=== PATIENT | female | born 1950 | race African-American/Black ===

== ENCOUNTER 2017-11-05 13:55 | Inpatient (IN) | payer MEDICARE, BC ==
[2017-11-05 20:10] LABS: ADD MAN DIFF? NO
[2017-11-05 20:11] LABS: BASOPHILS % 0.3 % (0.0-2.0); EOSINOPHILS # 0.3 10^3/ul (0.0-0.5); EOSINOPHILS % 4.3 % (0.0-7.0); HEMATOCRIT 21.1 % (37.0-47.0); HEMOGLOBIN 7.1 g/dl (12.0-16.0); LYMPHOCYTES # 1.4 10^3/ul (0.8-2.9); LYMPHOCYTES % 23.4 % (15.0-51.0); MEAN CORPUSCULAR HEMOGLOBIN 29.2 pg (29.0-33.0); MEAN CORPUSCULAR HGB CONC 33.6 g/dl (32.0-37.0); MEAN CORPUSCULAR VOLUME 86.8 fl (82.0-101.0); MEAN PLATELET VOLUME 12.4 fl (7.4-10.4); MONOCYTE # 0.3 10^3/ul (0.3-0.9); MONOCYTES % 5.5 % (0.0-11.0); NEUTROPHIL # 3.8 10^3/ul (1.6-7.5); PLATELET COUNT 143 10^3/UL (140-415); RED BLOOD COUNT 2.43 10^6/ul (4.20-5.40); RED CELL DISTRIBUTION WIDTH 11.9 % (11.5-14.5)
[2017-11-05 20:11] LABS: WHITE BLOOD COUNT 5.8 10^3/ul (4.8-10.8)
[2017-11-05 20:36] LABS: ANION GAP 27 (8-16); BLOOD UREA NITROGEN 90 mg/dl (7-20); CARBON DIOXIDE 19 mmol/L (21-31); CHLORIDE 102 mmol/L (97-110); GLUCOSE 93 mg/dl (70-220); PARTIAL THROMBOPLASTIN TIME 32.9 Sec (25.0-35.0); PROTIME 13.3 Sec (11.9-14.9); SODIUM 142 mmol/L (135-144)
[2017-11-05 20:38] LABS: POTASSIUM 5.5 mmol/L (3.5-5.1)
[2017-11-05 20:42] LABS: CREATININE 18.01 mg/dl (0.44-1.00)
[2017-11-05 20:48] LABS: TROPONIN-I 0.016 ng/ml (0.00-0.12)
[2017-11-05] MEDS: SOD CHLORIDE 0.9% 250 ML IV (21:09)
[2017-11-05] MEDS: NA POLYST SULFON 15 GM/60 ML BTL PO ×2 (21:10→21:50)
[2017-11-05 21:13] LABS: FREE T4 (FREE THYROXINE) 1.07 ng/dl (0.78-2.44)
[2017-11-05 21:27] LABS: THYROID STIMULATING HORMONE 0.266 MIU/L (0.465-4.680)
[2017-11-05] MEDS: NA BICARBONATE 8.4% 50 ML SYG IV (21:50)
[2017-11-05] MEDS ORDERED: ACETAMINOPHEN 325 MG TAB PO (22:00)
[2017-11-05] MEDS ORDERED: ONDANSETRON 4 MG INJ IV (22:00)
[2017-11-06] MEDS ORDERED: ONDANSETRON 4 MG INJ IV (02:30)
[2017-11-06 08:37] LABS: WHITE BLOOD COUNT 5.9 10^3/ul (4.8-10.8)
[2017-11-06 08:37] LABS: ABNORMAL IP MESSAGE 1; HEMATOCRIT 18.6 % (37.0-47.0); MEAN CORPUSCULAR HEMOGLOBIN 28.8 pg (29.0-33.0); MEAN CORPUSCULAR HGB CONC 33.3 g/dl (32.0-37.0); MEAN CORPUSCULAR VOLUME 86.5 fl (82.0-101.0); PLATELET COUNT 126 10^3/UL (140-415); RED BLOOD COUNT 2.15 10^6/ul (4.20-5.40); RED CELL DISTRIBUTION WIDTH 11.8 % (11.5-14.5)
[2017-11-06 08:50] LABS: POSITIVE DIFF @See below
[2017-11-06 08:51] LABS: ADD MAN DIFF? YES; ALANINE AMINOTRANSFERASE 20 IU/L (13-69); ALBUMIN 3.9 g/dl (3.3-4.9); ALBUMIN/GLOBULIN RATIO 1.18; ALKALINE PHOSPHATASE 123 IU/L (42-121); ANION GAP 24 (8-16); ASPARTATE AMINO TRANSFERASE 18 IU/L (15-46); BLOOD UREA NITROGEN 100 mg/dl (7-20); CALCIUM 8.3 mg/dl (8.4-10.2); CARBON DIOXIDE 22 mmol/L (21-31); CHLORIDE 102 mmol/L (97-110); GLUCOSE 101 mg/dl (70-220); HEMOGLOBIN 6.2 g/dl (12.0-16.0); MAGNESIUM 2.6 mg/dl (1.7-2.5); POTASSIUM 5.9 mmol/L (3.5-5.1); SODIUM 142 mmol/L (135-144); TOTAL PROTEIN 7.2 g/dl (6.1-8.1)
[2017-11-06 08:58] LABS: CREATININE 18.21 mg/dl (0.44-1.00)
[2017-11-06] MEDS: BENAZEPRIL 20 MG TAB PO (09:00)
[2017-11-06 10:01] LABS: ANISOCYTOSIS 1+ (0-0); BAND NEUTROPHILS % (M) 1 % (0-4); EOSINOPHILS % (M) 6 % (0-7); LYMPHOCYTES #M 0.5 10^3/ul (0.8-2.9); LYMPHOCYTES % (M) 10 % (15-51); MICROCYTOSIS 1+ (0-0); MONOCYTE #M 0.3 10^3/ul (0.3-0.9); MONOCYTES % (M) 6 % (0-11); PLATELET ESTIMATE NORMAL; POLYCHROMASIA 3+ (0-0); SEG NEUT #M 4.5 10^3/ul (1.6-7.5); SEGMENTED NEUTROPHILS (M) % 77 % (39-77); SMUDGE%M 5 % (0-0)
[2017-11-06] MEDS: NA POLYST SULFON 15 GM/60 ML BTL PR (17:25)
[2017-11-06 18:23] LABS: IRON 86 ug/dl (35-150)
[2017-11-06] MEDS: SEVELAMER 800 MG TAB PO (18:30)
[2017-11-06 18:33] LABS: % IRON SATURATION 43 % SAT (22-52); TOTAL IRON BINDING CAPACITY 202 ug/dl (241-421)
[2017-11-06] MEDS: EPOETIN 10000 UNITS/1 ML INJ (ESRD) SC (21:36)
[2017-11-07] MEDS: FUROSEMIDE 40 MG TAB PO (05:43)
[2017-11-07] MEDS: PANTOPRAZOLE (EC) 40 MG TAB PO (05:43)
[2017-11-07] MEDS: SEVELAMER 800 MG TAB PO ×3 (08:00→18:18)
[2017-11-07 08:39] LABS: ADD MAN DIFF? NO
[2017-11-07 08:42] LABS: ABNORMAL IP MESSAGE 1; BASOPHILS % 0.2 % (0.0-2.0); EOSINOPHILS # 0.2 10^3/ul (0.0-0.5); EOSINOPHILS % 3.6 % (0.0-7.0); HEMATOCRIT 16.7 % (37.0-47.0); LYMPHOCYTES # 0.4 10^3/ul (0.8-2.9); LYMPHOCYTES % 9.3 % (15.0-51.0); MEAN CORPUSCULAR HEMOGLOBIN 28.9 pg (29.0-33.0); MEAN CORPUSCULAR HGB CONC 33.5 g/dl (32.0-37.0); MEAN CORPUSCULAR VOLUME 86.1 fl (82.0-101.0); MEAN PLATELET VOLUME 12.7 fl (7.4-10.4); MONOCYTE # 0.2 10^3/ul (0.3-0.9); MONOCYTES % 5.3 % (0.0-11.0); NEUTROPHIL # 3.6 10^3/ul (1.6-7.5); NEUTROPHILS % 80.9 % (39.0-77.0); PLATELET COUNT 99 10^3/UL (140-415); RED BLOOD COUNT 1.94 10^6/ul (4.20-5.40); RED CELL DISTRIBUTION WIDTH 11.9 % (11.5-14.5)
[2017-11-07 08:42] LABS: WHITE BLOOD COUNT 4.5 10^3/ul (4.8-10.8)
[2017-11-07 08:53] LABS: HEMOGLOBIN 5.6 g/dl (12.0-16.0); POSITIVE DIFF @See below
[2017-11-07] MEDS: BENAZEPRIL 20 MG TAB PO (09:00)
[2017-11-07 09:14] LABS: BLOOD UREA NITROGEN 83 mg/dl (7-20); CALCIUM 8.2 mg/dl (8.4-10.2); CARBON DIOXIDE 21 mmol/L (21-31); CHLORIDE 102 mmol/L (97-110); GLUCOSE 92 mg/dl (70-220); MAGNESIUM 2.3 mg/dl (1.7-2.5); PHOSPHORUS 7.4 mg/dl (2.5-4.9); SODIUM 141 mmol/L (135-144)
[2017-11-07 09:21] LABS: ANION GAP 23 (8-16)
[2017-11-07 09:23] LABS: POTASSIUM 5.1 mmol/L (3.5-5.1)
[2017-11-07 09:37] LABS: CREATININE 16.56 mg/dl (0.44-1.00)
[2017-11-07] MEDS: EPOETIN 10000 UNITS/1 ML INJ (ESRD) SC (11:41)
[2017-11-07 14:41] LABS: HEMOGLOBIN 6.2 g/dl (12.0-16.0)
[2017-11-08] MEDS: PANTOPRAZOLE (EC) 40 MG TAB PO (06:03)
[2017-11-08] MEDS: SEVELAMER 800 MG TAB PO (08:00)
[2017-11-08 09:06] LABS: IMMEDIATE SPIN CROSSMATCH 1 4
[2017-11-08 09:20] LABS: ADD MAN DIFF? NO
[2017-11-08 09:23] LABS: ABNORMAL IP MESSAGE 1; BASOPHILS % 0.4 % (0.0-2.0); EOSINOPHILS # 0.3 10^3/ul (0.0-0.5); HEMATOCRIT 17.8 % (37.0-47.0); LYMPHOCYTES # 0.9 10^3/ul (0.8-2.9); MEAN CORPUSCULAR HEMOGLOBIN 28.7 pg (29.0-33.0); MEAN CORPUSCULAR HGB CONC 33.7 g/dl (32.0-37.0); MEAN CORPUSCULAR VOLUME 85.2 fl (82.0-101.0); MEAN PLATELET VOLUME 12.1 fl (7.4-10.4); MONOCYTE # 0.4 10^3/ul (0.3-0.9); MONOCYTES % 7.4 % (0.0-11.0); NEUTROPHIL # 3.5 10^3/ul (1.6-7.5); NEUTROPHILS % 69.6 % (39.0-77.0); PLATELET COUNT 102 10^3/UL (140-415); RED BLOOD COUNT 2.09 10^6/ul (4.20-5.40); RED CELL DISTRIBUTION WIDTH 11.9 % (11.5-14.5)
[2017-11-08 09:31] LABS: POSITIVE DIFF @See below
[2017-11-08] MEDS: BENAZEPRIL 20 MG TAB PO (09:44)
[2017-11-08 09:49] LABS: ANION GAP 26 (8-16); BLOOD UREA NITROGEN 82 mg/dl (7-20); CALCIUM 8.3 mg/dl (8.4-10.2); CARBON DIOXIDE 21 mmol/L (21-31); CHLORIDE 97 mmol/L (97-110); GLUCOSE 101 mg/dl (70-220); MAGNESIUM 2.2 mg/dl (1.7-2.5); PHOSPHORUS 7.7 mg/dl (2.5-4.9); POTASSIUM 4.7 mmol/L (3.5-5.1); SODIUM 139 mmol/L (135-144)
[2017-11-08 09:57] LABS: CREATININE 17.58 mg/dl (0.44-1.00)
[2017-11-08 11:45] LABS: THYROID STIMULATING HORMONE 0.555 MIU/L (0.465-4.680)
[2017-11-08] MEDS: SEVELAMER CARBONATE 0.8 GM PKT PO ×2 (13:48→19:38)
[2017-11-08 16:49] LABS: HEMATOCRIT 23.4 % (37.0-47.0); HEMOGLOBIN 8.1 g/dl (12.0-16.0)
[2017-11-08 16:59] LABS: PATH REVIEW CH
[2017-11-08] MEDS: EPOETIN 10000 UNITS/1 ML INJ (ESRD) SC (19:39)
[2017-11-09] MEDS: PANTOPRAZOLE (EC) 40 MG TAB PO (06:00)
[2017-11-09] MEDS: SEVELAMER CARBONATE 0.8 GM PKT PO ×3 (08:00→17:47)
[2017-11-09 08:07] LABS: ADD MAN DIFF? NO
[2017-11-09 08:11] LABS: ABNORMAL IP MESSAGE 1; BASOPHILS % 0.4 % (0.0-2.0); EOSINOPHILS # 0.2 10^3/ul (0.0-0.5); EOSINOPHILS % 3.5 % (0.0-7.0); HEMATOCRIT 23.4 % (37.0-47.0); HEMOGLOBIN 8.2 g/dl (12.0-16.0); LYMPHOCYTES # 0.8 10^3/ul (0.8-2.9); LYMPHOCYTES % 11.2 % (15.0-51.0); MEAN CORPUSCULAR HEMOGLOBIN 29.1 pg (29.0-33.0); MEAN PLATELET VOLUME 12.2 fl (7.4-10.4); MONOCYTE # 0.5 10^3/ul (0.3-0.9); MONOCYTES % 6.8 % (0.0-11.0); NEUTROPHIL # 5.4 10^3/ul (1.6-7.5); NEUTROPHILS % 77.7 % (39.0-77.0); PLATELET COUNT 89 10^3/UL (140-415); RED BLOOD COUNT 2.82 10^6/ul (4.20-5.40)
[2017-11-09 08:11] LABS: WHITE BLOOD COUNT 6.9 10^3/ul (4.8-10.8)
[2017-11-09 08:12] LABS: POSITIVE DIFF @See below
[2017-11-09 08:40] LABS: ANION GAP 24 (8-16); BLOOD UREA NITROGEN 86 mg/dl (7-20); CALCIUM 8.2 mg/dl (8.4-10.2); CARBON DIOXIDE 21 mmol/L (21-31); CHLORIDE 99 mmol/L (97-110); GLUCOSE 101 mg/dl (70-220); MAGNESIUM 2.3 mg/dl (1.7-2.5); PHOSPHORUS 7.8 mg/dl (2.5-4.9); POTASSIUM 4.5 mmol/L (3.5-5.1); SODIUM 139 mmol/L (135-144)
[2017-11-09 08:46] LABS: CREATININE 18.03 mg/dl (0.44-1.00)
[2017-11-09] MEDS: BENAZEPRIL 20 MG TAB PO (09:00)
[2017-11-09] MEDS: LIDOCAINE 1% (MDV) 20 ML INJ ×2 (12:05→12:36)
[2017-11-09] MEDS: PROPOFOL 20 ML ×2 (12:22→14:43)
[2017-11-09] MEDS: MIDAZOLAM 1 MG/ML 2 ML INJ (12:22)
[2017-11-09] MEDS: HEPARIN 1000 UNITS/ML 10 ML INJ (12:36)
[2017-11-09] MEDS: CEFAZOLIN 1 GM/50 ML (PMX) 50 ML IVPB (12:47)
[2017-11-09] MEDS: IOHEXOL 300MG/ML 30 ML BTL (14:21)
[2017-11-09] MEDS: ACETAMINOPHEN 325 MG TAB PO (20:12)
[2017-11-09 21:08] LABS: HEPATITIS B SURFACE ANTIBODY POSITIVE (NEGATIVE)
[2017-11-09 21:51] LABS: HEPATITIS B SURFACE ANTIGEN NEGATIVE (NEGATIVE)
[2017-11-09 22:08] LABS: HEPATITIS C VIRAL ANTIBODY NEGATIVE (NEGATIVE)
[2017-11-10] MEDS: PANTOPRAZOLE (EC) 40 MG TAB PO ×2 (06:00→06:03)
[2017-11-10 07:20] LABS: ADD MAN DIFF? NO
[2017-11-10 07:27] LABS: ABNORMAL IP MESSAGE 1; BASOPHILS % 0.5 % (0.0-2.0); EOSINOPHILS # 0.1 10^3/ul (0.0-0.5); HEMATOCRIT 23.5 % (37.0-47.0); HEMOGLOBIN 8.1 g/dl (12.0-16.0); LYMPHOCYTES # 0.5 10^3/ul (0.8-2.9); LYMPHOCYTES % 11.6 % (15.0-51.0); MEAN CORPUSCULAR HGB CONC 34.5 g/dl (32.0-37.0); MEAN CORPUSCULAR VOLUME 84.2 fl (82.0-101.0); MEAN PLATELET VOLUME 13.1 fl (7.4-10.4); MONOCYTE # 0.3 10^3/ul (0.3-0.9); MONOCYTES % 7.2 % (0.0-11.0); NEUTROPHIL # 3.3 10^3/ul (1.6-7.5); NEUTROPHILS % 77.5 % (39.0-77.0); PLATELET COUNT 103 10^3/UL (140-415); RED BLOOD COUNT 2.79 10^6/ul (4.20-5.40); RED CELL DISTRIBUTION WIDTH 12.8 % (11.5-14.5)
[2017-11-10 07:27] LABS: WHITE BLOOD COUNT 4.3 10^3/ul (4.8-10.8)
[2017-11-10 07:33] LABS: POSITIVE DIFF @See below
[2017-11-10 08:02] LABS: ANION GAP 17 (8-16); CALCIUM 8.3 mg/dl (8.4-10.2); CARBON DIOXIDE 25 mmol/L (21-31); CHLORIDE 100 mmol/L (97-110); CREATININE 12.44 mg/dl (0.44-1.00); GLUCOSE 127 mg/dl (70-220); MAGNESIUM 2.2 mg/dl (1.7-2.5); PHOSPHORUS 6.2 mg/dl (2.5-4.9); POTASSIUM 3.7 mmol/L (3.5-5.1); SODIUM 138 mmol/L (135-144)
[2017-11-10 08:21] LABS: BLOOD UREA NITROGEN 51 mg/dl (7-20)
[2017-11-10] MEDS: SEVELAMER CARBONATE 0.8 GM PKT PO ×3 (08:57→17:50)
[2017-11-10] MEDS: BENAZEPRIL 20 MG TAB PO (09:00)
[2017-11-10] MEDS: HEPARIN 1000 UNITS/ML 10 ML INJ CATHETER (17:00)
[2017-11-10] MEDS: EPOETIN 10000 UNITS/1 ML INJ (ESRD) SC (17:51)
[2017-11-11] MEDS: ACETAMINOPHEN 325 MG TAB PO (06:10)
[2017-11-11] MEDS: PANTOPRAZOLE (EC) 40 MG TAB PO ×2 (06:10→06:12)
[2017-11-11] MEDS: SEVELAMER CARBONATE 0.8 GM PKT PO ×2 (08:15→12:23)
[2017-11-11] MEDS: BENAZEPRIL 20 MG TAB PO (08:16)
== END 2017-11-11 18:08 | disposition home health service (06) | DRG 640 ==
LOC: MS4 21:32 → E/R 13:55 → MS4 11-06 11:54
PROC: 5A1D70Z Performance of Urinary Filtration, Intermittent, Less than 6 Hours Per Day (ICD-10-PCS; 2017-11-06)
PROC: 5A1D70Z Performance of Urinary Filtration, Intermittent, Less than 6 Hours Per Day (ICD-10-PCS; 2017-11-06)
PROC: 5A1D70Z Performance of Urinary Filtration, Intermittent, Less than 6 Hours Per Day (ICD-10-PCS; 2017-11-06)
PROC: 5A1D70Z Performance of Urinary Filtration, Intermittent, Less than 6 Hours Per Day (ICD-10-PCS; 2017-11-06)
PROC: 30233N1 Transfusion of Nonautologous Red Blood Cells into Peripheral Vein, Percutaneous Approach (ICD-10-PCS; principal; 2017-11-08)
PROC: 0JH63XZ Insertion of Tunneled Vascular Access Device into Chest Subcutaneous Tissue and Fascia, Percutaneous Approach (ICD-10-PCS; 2017-11-09)
PROC: 02H633Z Insertion of Infusion Device into Right Atrium, Percutaneous Approach (ICD-10-PCS; 2017-11-09)
PROC: B214YZZ Fluoroscopy of Right Heart using Other Contrast (ICD-10-PCS; 2017-11-09)
DX: E87.5 Hyperkalemia (principal); N18.6 End stage renal disease; E87.2 Acidosis; D61.818 Other pancytopenia; I12.0 Hypertensive chronic kidney disease with stage 5 chronic kidney disease or end stage renal disease; D63.1 Anemia in chronic kidney disease; E87.70 Fluid overload, unspecified; E05.90 Thyrotoxicosis, unspecified without thyrotoxic crisis or storm; E83.9 Disorder of mineral metabolism, unspecified; Z99.2 Dependence on renal dialysis; Z91.15 Patient's noncompliance with renal dialysis
CPT/HCPCS: 36430; 36558; 71045; 80048; 80053; 82728; 83540; 83735; 84100; 84439; 84443; 84484; 85014; 85018; 85025; 85610; 85730; 86706; 86803; 86850; 86900; 86901; 86920; 87340; 90935; 93005; 96374; 99291-25

== ENCOUNTER 2019-05-08 10:57 | Emergency (ER) | payer MEDICARE, BC | END 2019-05-08 11:47 | disposition home or self-care (01) | LOC: FTE 10:57 | DX: H66.93 Otitis media, unspecified, bilateral (principal); I12.0 Hypertensive chronic kidney disease with stage 5 chronic kidney disease or end stage renal disease; N18.6 End stage renal disease; H10.9 Unspecified conjunctivitis | CPT/HCPCS: 99283 ==